=== PATIENT | female | born 1935 | race African-American/Black ===

== ENCOUNTER 2018-04-29 18:34 | Emergency (ER) | payer OTHER ==
[~2018-04-29] VITALS: Ht 170.2 cm; Wt 54.4 kg
[~2018-04-29 18:34] MED LIST: ALPR0.25 PO; CHOL5000 PO; ERGO500027 PO; FURO20TA3 PO; LOVA20TA2 PO; MULT1TAB90 PO; VITA1TAB19 PO
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
[2018-04-29 18:57] LABS: BASO % 1 % (0-3); EOS % 0 % (0-3); HEMATOCRIT 35.7 % (36.0-47.0); HEMOGLOBIN 11.8 g/dL (12.0-15.5); LYMPH # 1.2 x10^3/uL (1.0-4.8); LYMPH % 23 % (24-48); MEAN CORPUSCULAR HEMOGLOBIN 29 pg (25-35); MEAN CORPUSCULAR HGB CONC 33 g/dL (31-37); MEAN CORPUSCULAR VOLUME 88 fL (79-100); MONO # 0.6 x10^3/uL (0.0-1.1); MONO % 13 % (0-9); NEUT # 3.3 x10^3uL (1.8-7.7); NEUT % 63 % (31-73); PLATELET COUNT 238 x10^3/uL (140-400); RED BLOOD COUNT 4.05 x10^6/uL (3.50-5.40); WHITE BLOOD COUNT 5.1 x10^3/uL (4.0-11.0)
[2018-04-29 19:09] LABS: BILIRUBIN,URINE NEGATIVE (NEG); CLARITY,URINE CLEAR; COLOR,URINE YELLOW; NITRITE,URINE NEGATIVE (NEG); PH,URINE 5.5; PROTEIN,URINE NEGATIVE (NEG-TRACE)
[2018-04-29 19:16] LABS: BARBITURATES NEG (NEG); BENZODIAZEPINES NEG (NEG); CANNABINOIDS NEG (NEG); COCAINE NEG (NEG); METHADONE NEG (NEG); OPIATES NEG (NEG); PHENCYCLIDINE NEG (NEG)
[2018-04-29 19:17] LABS: AMPHETAMINE/METHAMPHETAMINE NEG (NEG)
[2018-04-29 19:18] LABS: BACTERIA,URINE 0 /HPF (0-FEW); RBC,URINE RARE /HPF (0-2); SQUAMOUS EPITHELIAL CELL,UR FEW /LPF; WBC,URINE 0 /HPF (0-4)
[2018-04-29 20:07] LABS: CALCIUM 8.8 mg/dL (8.5-10.1); CREATININE 0.9 mg/dL (0.6-1.0); GFR 72.4; POTASSIUM 3.3 mmol/L (3.5-5.1)
[2018-04-29 20:10] LABS: ACETAMIN < 2 mcg/ml (10-30); ETHANOL < 10 mg/dL (0-10); SALIC < 2.8 mg/dL (2.8-20.0)
[2018-04-29 20:11] LABS: DIRECT BILIRUBIN 0.2 mg/dL (0.0-0.2); MAGNESIUM 2.2 mg/dL (1.8-2.4); TOTAL BILIRUBIN 0.5 mg/dL (0.2-1.0)
[2018-04-29] MEDS: POTASSIUM CHLORIDE 20 MEQ TABLET.ER. PO ONE (20:49)
[2018-04-29 21:03] VITALS: BP 195/93
[2018-04-29] MEDS ORDERED: LORA0.5T96 PO (21:16)
[2018-04-29] MEDS: LORazepam 1 MG TABLET PO ONE (21:28)
--- NOTE | 2018-04-30 10:20 | EKG ---
[facility] [address] [place] [address] Test Date: 2018-04-29 Test Time: 19:02:42 Pat Name: GUMARO KNOWLES Department: Room: Gender: F [place]: : 1935 Requested By: LINA DOMINGUEZ Order Number: [id number] Reading MD: Measurements Intervals [place] Rate: 92 P: 7 MN: 144 QRS: -17 QRSD: 86 T: 54 QT: 372 QTc: 465 Interpretive Statements SINUS RHYTHM LEFTWARD AXIS NO SPECIFIC ECG ABNORMALITIES RI6.01 No previous ECG available for comparison
== END 2018-04-29 23:16 | disposition home or self-care (01) ==
LOC: ER 18:34
DX: F03.90 Unspecified dementia, unspecified severity, without behavioral disturbance, psychotic disturbance, mood disturbance, and anxiety (principal); I10 Essential (primary) hypertension; E78.00 Pure hypercholesterolemia, unspecified
CPT/HCPCS: 36415; 51701; 80048; 80076; 80307; 80329; 81001; 83735; 85025; 85610; 93005; 99285; G0480; G6039; G0479